=== PATIENT | female | born 1995 | race Caucasian/White ===

== ENCOUNTER 2018-04-27 12:36 | Emergency (ER) | payer BC, OTHER ==
[~2018-04-27] VITALS: Ht 170.2 cm; Wt 128.8 kg
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
--- OUTSIDE RECORDS SUMMARY | 2018-04-27 12:39 | XMS REPORT | Clinical Summary ---
Author Author [facility] Organization [facility] Address Unknown Phone Unavailable Care Team Providers Care Plumber Assistant Name Role Phone Sharpless PCP Allergies No Known Allergies Medications End Date Status Medication Sig Dispensed Refills Start Date Active HYDROcodone-ibuprofen Take 1 tablet 0 (VICOPROFEN) 7.5-200 mg by mouth per tablet every 8 (eight) hours as needed for Pain. Active Missing or Non-Formulary 0 Medication Active Problems Problem Noted Date Biliary colic 11/22/2015 Social History Date Tobacco Use Types Packs/Day Years Used Never Smoker Alcohol Use Drinks/Week oz/Week Comments No Sex Assigned at Date Recorded Not on file Industry Job Start Date Occupation Not on file Not on file Not on file Travel End Travel History Travel Start No recent travel history available. Last Filed Vital Signs Not on file Plan of Treatment Not on file Results Not on fileafter 04/26/2017 Insurance Payer Benefit Subscriber ID Type Phone Address Plan / Group [employer] OS xxxxxxxxxxxx PPO [phone] [address] [place] [address] O [employer] PPO xxxxxxxxxxxx PPO [phone] [address] [place] [address] CHOICE Advance Directives For more information, please contact: [facility] [address] [place] [address] Date Inactivated Comments Code Status Date Activated 11/22/2015 2:21 PM Full Code 11/22/2015 7:18 AM This code status was determined by: Patient
--- OUTSIDE RECORDS SUMMARY | 2018-04-27 12:39 | XMS REPORT | Summary of Care ---
Author Author DEAN CABALLERO M.D. Organization Unknown Address Unknown Phone Unavailable Care Team Providers Care Audit Mgr Name Role Phone DEAN CABALLERO M.D. Unavailable Unavailable Unavailable Unavailable Functional Status Name Dates Details Functional status health issues are not documented Status: Name Dates Details Cognitive status health issues are not documented Status: Problems Name Dates Details IBS (irritable bowel syndrome) (564.1, K58.9) Status: Active Mixed hearing loss, bilateral (389.22, H90.6) Status: Active Medications Name Dates Details No Reported Medications Active Allergies and Adverse Reactions Name Dates Details No Known Allergies (Allergy) Status: Active Procedures Procedure Dates Details History of Knee surgery Completed History of Ear surgery Completed History of Gallbladder surgery Completed Immunization Name Dates Details Immunizations not documented Family History Name Dates Details Family history of malignant neoplasm (V16.9, Z80.9) Comments: Other Status: Active Social History Name Dates Details - Status: Name Dates Details Never smoker Vital Signs Date Test Result Details [id number] Weight 289.4375 lb Status: Results Date Description Value Details Results not documented Plan of Care Name Dates Details Planned Observations Planned Goals not documented Planned Encounters Appointment; LEA LOPEZ On: 11-Sep-2017 14:30 Interventions Provided Plan* 21 yo F with bilateral mixed hearing loss since she was a child, very small left TM perforation * - discussed audio. Discussed treatment options including tuning her existing hearing aids versus middle ear exploration with possible OCR * - she wishes to try her hearing aids first, which is reasonable * - RTC 6 months to a year with audio Instructions Name Dates Details Instructions not documented Encounters Appointment; ELA LOPEZ Encounter Diagnosis: Problem not documented On: 30-Jul-2017 13:30 Appointment; DEAN CABALLERO M.D. Encounter Diagnosis: Problem not documented On: 30-Jul-2017 14:00
--- OUTSIDE RECORDS SUMMARY | 2018-04-27 12:39 | XMS REPORT | Summary of Care ---
Author Organization Unknown Address Unknown Phone Unavailable Encounter ARABELLA Eudardo(HU) [id number] Date(s): 09/20/13 - 09/20/13 [facility] [address] [address] Discharge Diagnosis: Acute knee pain Discharge Disposition: Home Physician Attending: Geno Paez MD Reason for Visit KNEE INJURY Vital Signs Most recent to 1 2 oldest [Reference Range]: Temperature Oral 98.0 DegF 97.6 DegF [96.8-99.7 DegF] (09/20/13 9:16 PM) (09/20/13 7:36 PM) Systolic Blood 125 mmHg 137 mmHg Pressure [90-138 (09/20/13 9:16 PM) (09/20/13 7:36 PM) mmHg] Diastolic Blood 82 mmHg 87 mmHg Pressure [45-84 (09/20/13 9:16 PM) *HI* mmHg] (09/20/13 7:36 PM) Respiratory Rate 18 BRMIN 18 BRMIN [14-20 BRMIN] (09/20/13 9:16 PM) (09/20/13 7:36 PM) Peripheral Pulse 92 bpm 99 bpm Rate [55-90 bpm] *HI* *HI* (09/20/13 9:16 PM) (09/20/13 7:36 PM) Weight 125.455 kg (09/20/13 7:36 PM) Problem List No data available for this section Allergies, Adverse Reactions, Alerts Substance Reaction Severity Status NKDA Active Medications Motrin 800 mg, Route: PO, ONCE, Dosing Weight 125.455, kg, Start date: 09/20/13 19:49:0 0, Stop date: 09/20/13 19:49:00 Start Date: 09/20/13 Stop Date: 09/20/13 Status: Completed Medications Administered During Your Visit No data available for this section Immunizations No data available for this section
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
[2018-04-27] MEDS ORDERED: HYDROCODONE/APAP 5MG-325MG TAB PO ONE (13:00)
--- NOTE | 2018-04-27 13:59 | Diagnostic Imaging Report ---
Exam: Right Knee Series. History: Status post fall, right knee injury Comparison: None. Findings: 3 views of the right knee. There is normal bone mineralization. Negative for acute, displaced fracture or dislocation. The joint spaces are normal. No abnormal soft tissue calcification or mass. Tiny suprapatellar effusion. Impression: 1. Tiny suprapatellar effusion, without underlying bony abnormalities. Signed by: Dr. Giovanny Bailon M.D. on 04/27/2018 1:56 PM
== END 2018-04-27 17:30 | disposition home or self-care (01) ==
LOC: ER 12:36
DX: M25.561 Pain in right knee (principal); W01.0XXA Fall on same level from slipping, tripping and stumbling without subsequent striking against object, initial encounter; Y92.008 Other place in unspecified non-institutional (private) residence as the place of occurrence of the external cause
CPT/HCPCS: 99283